=== PATIENT | male | born 1995 | race Hispanic/Latino ===

== ENCOUNTER 2021-04-24 21:56 | Emergency (ER) | payer OTHER, SELFPAY ==
[2021-04-24 22:53] VITALS: BP 125/61; PULSE 71; RESP 20; TEMP 36.8; O2SAT 98; BMI 25.0
[2021-04-24] MEDS: LIDO 1%/SOD BICARB 8.4% (10ML) 10 ML SYRINGE INJ (23:37)
[2021-04-25] MEDS: BACITRACIN OINT 0.9 GM PCKT 1 APPLIC TOP (00:14)
--- NOTE | 2021-04-25 06:44 | ED_ITS ---
HPI - Extremity Problem General Chief complaint: Extremity Problem,Nontraumatic Stated complaint: RT HAND SWOLLEN FIRST FINGER Time Seen by Provider: 04/24/21 21:59 Source: patient Mode of arrival: Ambulatory Limitations: no limitations History of Present Illness HPI Narrative: 25-year-old male nonsmoker with noncontributory medical history presents with a chief complaint of pain and swelling on the dorsum of his right index finger overlying the nail fold. He states it has been there for a few days but is worsening. He has tried soaking it in warm water and even attempted to drain pus at home. He has been minimally successful. He is here because he looked up online and was concerned about the swelling getting worse. he denies systemic findings such as fever, chills, nausea or vomiting. He is able to make a fist and denies any numbness MD Complaint: extremity pain Onset (ago): day(s) Pain Consistency: constant Location: right Quality: burning and aching Radiation: none Relieving factors: rest Exacerbating factors: palpation Associated symptoms: denies other symptoms Related Data Previous Rx's Medication Instructions Recorded doxycycline hyclate 100 mg PO BID #14 cap 04/24/21 Allergies Allergy/AdvReac Type Severity Reaction Status Date / Time No Known Drug Allergies Allergy Verified 04/24/21 22:53 Review of Systems Constitutional Constitutional: Denies chills, Denies fatigue, Denies fever(s), Denies frequent falls, Denies lethargy and Denies weakness Eyes Eyes: Denies change in vision, Denies eye discharge, Denies irritation and Denies loss of vision ENT Ears, Nose, Mouth, and Throat: Denies change in voice, Denies dizziness, Denies neck pain, Denies sore throat and Denies throat swelling Cardiovascular Cardiovascular: Denies chest pain, Denies irregular heart rhythm, Denies lightheadedness, Denies palpitations, Denies dyspnea, Denies dyspnea on exertion and Denies orthopnea Respiratory Respiratory: Denies cough, Denies dyspnea, Denies dyspnea on exertion and Denies wheezing Gastrointestinal Gastrointestinal: Denies abdominal pain, Denies change in bowel habits, Denies diarrhea, Denies nausea and Denies vomiting Musculoskeletal Musculoskeletal: Denies neck pain and Denies numbness Integumentary/Breasts Skin/Breast: Denies pruritus, Reports erythema, Denies rash and Reports skin swelling Neurologic Neurologic: Denies behavioral changes, Denies confusion, Denies dizziness, Denies frequent falls, Denies loss of vision, Denies numbness and Denies weakness Psychiatric Psychiatric: Denies anxiety, Denies behavioral changes, Denies confusion, Denies depression, Denies homicidal ideation and Denies suicidal ideation Endocrine Endocrine: Denies fatigue, Denies flushing and Denies palpitations Hematologic/Lymphatic Hematologic/Lymphatic: Denies easy bruising Allergic/Immunologic Allergic/Immunologic: Denies urticaria, Denies throat swelling and Denies wheezing Patient History Social History Smoking Status: Never smoker Smoking Status: Never smoker alcohol intake frequency: holidays/special occasions only Substance Use Type: does not use Exam Narrative Exam Narrative: GEN: AOx3 and in mild distress EYES: Pupils are equal, round, and reactive to light and accommodation. Extraoccular muscles are intact bilaterally. There is no subconjunctival hemorrhage or exudate. CHEST: Lungs are clear to auscultation bilaterally and free of wheezes, rales, or rhonchi. Heart rate is regular rhythm, there are no murmurs, clicks, rubs, or gallops. There is no chest wall tenderness. ABD: Abdomen is soft and nontender. There is no guarding or rebound. Bowel sounds are normal in all 4 quadrants. There is no mass or organomegaly. EXT:Swelling and mild fluctuance on dorsum of right index finger overlying the nail fold consistent with paronychia. There is no fusiform swelling or pain along palpation of flexor tendon. Patient able to make a fist. Full painless ROM of all extremities with no loss of sensation or strength. SKIN: Warm, pink, and dry. No erythema or rash Initial Vital Signs Initial Vital Signs: Vital Signs Temperature 98.2 F 04/24/21 22:53 Pulse Rate 71 04/24/21 22:53 Respiratory Rate 20 04/24/21 22:53 Blood Pressure 125/61 04/24/21 22:53 Pulse Oximetry 98 04/24/21 22:53 Procedures Abscess I/D I&D #1: Site: hand Side (if applicable): right Technique: incised with #11 blade Amount of fluid expressed (mL): 2 Irrigation: No Packing used?: none Complications: bleeding Nerve Block Nerve Block 1: Local Anesthetic: lidocaine 1% and with bicarb Side: right Nerve Blocks: digital Procedure Successful: Yes Patient Tolerated Procedure: Well Complications: none Course Orders Ordered: Discontinued Medications Bacitracin (Bacitracin Oint 0.9 Gm Pckt) 1 applic TOP NOW ONE Stop: 04/25/21 00:08 Last Admin: 04/25/21 00:14 Dose: 1 applic Documented by: DEISY Lidocaine/Sodium Bicarbonate (Lido 1%/Sod Bicarb 8.4% (10ml) 10 Ml Syringe) 10 ml INJ NOW ONE Stop: 04/24/21 23:25 Last Admin: 04/24/21 23:37 Dose: 10 ml Documented by: JOVANNI Vital Signs Vital signs: Vital Signs - 8 hr 04/24/21 22:53 Temperature 98.2 F Pulse Rate 71 Respiratory Rate 20 Blood Pressure 125/61 Pulse Oximetry 98 MDM - Extremity (Nontraumatic) MDM Narrative Medical decision making narrative: Patient with large paronychia and fluctuance, very minimal drainage with I and D. other diagnoses such as flexor tenosynovitis and other deep space infection or considered but thought unlikely given such a reassuring physical exam. Patient given prescription for antibiotics, instruction to soak his hand in warm water and Epson salts and follow up with his doctors. He is given return precautions and and questions answered to his apparent satisfaction Discharge Plan Departure Patient Disposition: Home Clinical Impression: Paronychia Instructions: DI for Paronychia Activity Restrictions/Additional Instructions: *You have been diagnosed with [Paronychia ] *What to do: *Please continue to take your regular medications as directed. [x ] New medication prescriptions sent to your pharmacy: [facility] ] [ ] New medication written as a paper prescription [ ] No new medications given *Please follow up with your primary care provider in 2-3 days, call for an appointment. Let them know you were seen in the Emergency Department and that we ask that you be seen in follow up. We will electronically transmit a record of today's note if your PCP is in our system *If you do not have a primary care provider please contact the [facility] Resource line at [phone]. They will ask some questions about your medical history and help get you set up with a doctor in the community. *Return to Emergency Department if you should have any new, worsening or concerning symptoms, such as [fever greater than 101 F, shaking chills, worsening pain, persistent vomiting or other bothersome symptoms] Prescriptions: New doxycycline hyclate 100 mg capsule 100 mg PO BID Qty: 14 RF: 0
== END 2021-04-25 00:14 | disposition home or self-care (01) ==
PROVIDERS: Emergency Provider Emergency Medicine
DX: L03.011 Cellulitis of right finger (principal)
CPT/HCPCS: 10060; 64450; 99283